=== PATIENT | male | born 1990 | race Caucasian/White ===

== ENCOUNTER 2018-05-07 03:59 | Emergency (ER) | payer SELFPAY ==
[2018-05-07 04:18] VITALS: TEMP 97.7
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
[2018-05-07 06:53] VITALS: BP 102/60; PULSE 87; RESP 20; O2SAT 100
--- NOTE | 2018-05-07 16:19 | RAD ---
PROCEDURE: Radiographs of the Chest and Right Ribs. HISTORY: pain COMPARISON: None available. TECHNIQUE: Frontal radiograph of the chest and multiple oblique radiographs of the right ribs were obtained. FINDINGS: RIGHT RIBS: No fracture or focal lesion visualized. LUNGS: Clear. PLEURA: No pneumothorax or pleural fluid. CARDIOVASCULAR: Normal sized heart. No pulmonary vascular congestion. OTHER FINDINGS: None. IMPRESSION: Unremarkable radiographs of the chest and right ribs. No right rib fracture.
== END 2018-05-07 06:53 | disposition home or self-care (01) ==
LOC: C.ER 03:59
DX: R10.11 Right upper quadrant pain (principal)

== ENCOUNTER 2018-06-17 15:54 | Emergency (ER) | payer MEDICAID ==
[2018-06-17 16:11] VITALS: TEMP 98.9; O2SAT 99
--- NOTE | 2018-06-17 16:18 | C.PDOC ---
History Of Present Illness 28-year-old male presents to the emergency department for psychiatric evaluation. Patient states he has been having increased fights and arguments with his family, and also has been pacing and having racing thoughts. His states that his family members "tell him that he is crazy", prompting ER visit today. Patient states "I want to know." He denies SI/HI. No other complaints at this time. Time Seen by Provider: 06/17/18 16:03 Chief Complaint (Nursing): Psychiatric Evaluation History Per: Patient History/Exam Limitations: no limitations Current Symptoms Are (Timing): Still Present Suicide/Self Injury Attempted (Context): None Associated Symptoms: Agitation Past Medical History Reviewed: Historical Data, Nursing Documentation, Vital Signs Vital Signs: Last Vital Signs Temp 98.9 F 06/17/18 16:07 Pulse 88 06/17/18 17:31 Resp 16 06/17/18 17:31 BP 132/78 06/17/18 17:31 Pulse Ox 99 06/17/18 17:31 - Medical History PMH: HTN Family History: States: No Known Family Hx - Social History Hx Tobacco Use: Yes (heavy smoker) Hx Alcohol Use: Yes Hx Substance Use: Yes - Immunization History Hx Tetanus Toxoid Vaccination: No Hx Influenza Vaccination: No Hx Pneumococcal Vaccination: No Review Of Systems Constitutional: Negative for: Fever Cardiovascular: Negative for: Chest Pain, Palpitations Respiratory: Negative for: Shortness of Breath Gastrointestinal: Negative for: Nausea, Vomiting Neurological: Negative for: Headache, Dizziness Psych: Negative for: Depression, Psychosis, Suicidal ideation Physical Exam - Physical Exam Appears: Well, Non-toxic, Other (appears anxious, pressured speech) Skin: Normal Color, Warm, Dry, No Rash Head: Atraumatic, Normacephalic Eye(s): bilateral: Normal Inspection Oral Mucosa: Moist Cardiovascular: Rhythm Regular Respiratory: Normal Breath Sounds, No Rales, No Rhonchi, No Wheezing Extremity: Normal ROM, No Deformity Neurological/Psych: Oriented x3, Normal Speech, Normal Cognition Gait: Steady ED Course And Treatment O2 Sat by Pulse Oximetry: 99 (ra) Pulse Ox Interpretation: Normal Progress Note: Patient evaluated by myself and crisis counselor Nan. He has no SI/HI and is stable for discharge. Patient referred to [facility] services, which he will walk to after being discharged from ED. He understands he should return to ED if he has worsening or concerning symptoms. Disposition Counseled Patient/Family Regarding: Diagnosis, Need For Followup - Disposition Disposition: HOME/ ROUTINE Disposition Time: 17:25 Condition: STABLE Additional Instructions: [facility] [address] [place] [id number] Forms: General Discharge Instructions, [facility] (Chinese) Print Language: BELARUSIAN - Clinical Impression Clinical Impression: Anxiety, Agitation - Scribe Statement The provider has reviewed the documentation as recorded by the Scribe (Berna Erazo) All medical record entries made by the Scribe were at my direction and personally dictated by me. I have reviewed the chart and agree that the record accurately reflects my personal performance of the history, physical exam, medical decision making, and the department course for this patient. I have also personally directed, reviewed, and agree with the discharge instructions and disposition.
[2018-06-17 16:55] LABS: URINE BILIRUBIN NEGATIVE (NEGATIVE); URINE BLOOD NEGATIVE (NEGATIVE); URINE CLARITY Clear (Clear); URINE COLOR Yellow (YELLOW); URINE GLUCOSE (UA) NORMAL (Normal); URINE LEUKOCYTE ESTERASE 1+ Leu/uL (Negative); URINE PROTEIN NEGATIVE (NEGATIVE); URINE UROBILINOGEN NORMAL mg/dL (0.2-1.0)
[2018-06-17 17:06] LABS: BARBITURATES, UR NEGATIVE (NEGATIVE); BENZODIAZEPINES, UR NEGATIVE (NEGATIVE); OPIATES, UR NEGATIVE (NEGATIVE); PHENCYCLIDINE, UR NEGATIVE (NEGATIVE)
[2018-06-17 17:34] VITALS: BP 132/78; PULSE 88; RESP 16
== END 2018-06-17 17:31 | disposition home or self-care (01) ==
LOC: C.ER 15:54
DX: F41.9 Anxiety disorder, unspecified (principal); R45.1 Restlessness and agitation

== ENCOUNTER 2018-06-17 17:52 | Inpatient (IN) | payer MEDICAID ==
[2018-06-17 19:31] LABS: BASO % 0.3 % (0.0-2.0); EOS # 0.2 K/uL (0.0-0.7); EOS % 2.9 % (0.0-4.0); LYMPH # 3.6 K/uL (1.0-4.3); LYMPH % 43.5 % (20.0-40.0); MEAN CELL VOLUME 87.6 fL (80.0-94.0); MEAN CORPUSCULAR HEMOGLOBIN 29.6 pg (27.0-31.0); MEAN CORPUSCULAR HGB CONC 33.8 g/dL (33.0-37.0); MEAN PLATELET VOLUME 7.7 fL (7.2-11.7); MONO # 0.6 K/uL (0.0-0.8); MONO % 7.9 % (0.0-10.0); NEUT # 3.7 K/uL (1.8-7.0); NEUT % 45.4 % (50.0-75.0); NRBC % 0.1 % (0.0-2.0); RBC 4.4 Mil/uL (4.40-5.90); RED CELL DISTRIBUTION WIDTH 13.9 % (11.5-14.5); WHITE BLOOD COUNT 8.2 K/uL (4.8-10.8)
[2018-06-17 19:52] LABS: ALB/GLOB RATIO 1.7 (1.0-2.1); ALBUMIN 4.6 g/dL (3.5-5.0); ALT/SGPT 26 U/L (21-72); AST/SGOT 26 U/L (17-59); BLOOD UREA NITROGEN 14 mg/dL (9-20); CALCIUM 9.2 mg/dl (8.6-10.4); GFR AFRICAN-AMERICAN > 60; GFR NON-AFRICAN AMERICAN > 60
[2018-06-17 19:54] LABS: URINE BILIRUBIN NEGATIVE (NEGATIVE); URINE BLOOD NEGATIVE (NEGATIVE); URINE CLARITY Clear (Clear); URINE COLOR Yellow (YELLOW); URINE GLUCOSE (UA) NORMAL (Normal); URINE LEUKOCYTE ESTERASE TRACE Leu/uL (Negative); URINE PROTEIN NEGATIVE (NEGATIVE); URINE UROBILINOGEN NORMAL mg/dL (0.2-1.0)
[2018-06-17 19:56] LABS: ACETAMINOPHEN < 10.0 ug/mL (10.0-30.0); SALICYLATE < 1.0 mg/dL 1
[2018-06-17 20:03] LABS: BARBITURATES, UR NEGATIVE (NEGATIVE); BENZODIAZEPINES, UR NEGATIVE (NEGATIVE); OPIATES, UR NEGATIVE (NEGATIVE); PHENCYCLIDINE, UR NEGATIVE (NEGATIVE)
--- NOTE | 2018-06-17 21:06 | C.PDOC ---
Time Seen by Provider: 06/17/18 18:32 Chief Complaint (Nursing): Psychiatric Evaluation History Per: Patient Onset/Duration Of Symptoms: Days Current Symptoms Are (Timing): Still Present Suicide/Self Injury Attempted (Context): None Modifying Factor(s): Alcohol Severity: Severe Associated Symptoms: Agitation, Paranoia Additional History Per: Prior Records Past Medical History Reviewed: Historical Data, Nursing Documentation, Vital Signs Vital Signs: Last Vital Signs Temp 98.3 F 06/17/18 17:58 Pulse 92 H 06/17/18 17:58 Resp 18 06/17/18 17:58 BP 124/82 06/17/18 17:58 Pulse Ox 100 06/17/18 21:08 - Medical History PMH: HTN Surgical History: No Surg Hx Family History: States: Unknown Family Hx - Social History Hx Tobacco Use: Yes (heavy smoker) Hx Alcohol Use: Yes Hx Substance Use: No - Immunization History Hx Tetanus Toxoid Vaccination: No Hx Influenza Vaccination: No Hx Pneumococcal Vaccination: No Review Of Systems Constitutional: Negative for: Fever Respiratory: Negative for: Shortness of Breath Gastrointestinal: Negative for: Vomiting, Abdominal Pain Musculoskeletal: Negative for: Neck Pain Skin: Positive for: Bruising Neurological: Positive for: Headache. Negative for: Weakness, Numbness, Seizures Psych: Positive for: Psychosis Physical Exam - Physical Exam Appears: Agitated Skin: Normal Color, Warm, Dry Head: Tenderness (with ecchymosis around right mastoid area) Eye(s): bilateral: PERRL, EOMI Ear(s): Bilateral: Normal Nose: No Epistaxis, No Deformity Teeth: No Avulsed Neck: Normal ROM, No Midline Cervical Tenderness, No Step Off Deformity, Supple Chest: Symmetrical, No Deformity Cardiovascular: Rhythm Regular Respiratory: Normal Breath Sounds, No Accessory Muscle Use Gastrointestinal/Abdominal: Soft, No Tenderness Back: No Vertebral Tenderness Extremity: Normal ROM, No Deformity Neurological/Psych: Oriented x3, Normal Motor, Normal Sensation ED Course And Treatment - Laboratory Results Result Diagrams: 06/17/18 19:26 06/17/18 19:26 Lab Interpretation: No Acute Changes ECG: Interpreted By Me, Viewed By Me ECG Rhythm: Sinus Rhythm, Nonspecific Changes ECG Interpretation: No Acute Changes Rate From EC O2 Sat by Pulse Oximetry: 100 Pulse Ox Interpretation: Normal - Radiology CXR: Interpreted by Me, Viewed By Me CXR Interpretation: Yes: No Acute Disease - CT Scan/US CT head Other Rad Studies (CT/US): Read By Radiologist, Radiology Report Reviewed CT/US Interpretation: Contusion in the soft tissues overlying the right mastoid air cells. No acute fracture or acute intracranial findings. Progress Note: Pt is medically stable for psychiatric admission. Disposition Discussed With : Lorena Marte Counseled Patient/Family Regarding: Studies Performed, Diagnosis, Smoking Cessation - Disposition Disposition: HOSPITALIZED Disposition Time: 21:27 Condition: STABLE - Clinical Impression Clinical Impression: Paranoid, Agitation Decision To Admit - Pt Status Changed To: Hospital Disposition Of: Inpatient - Admit Certification Admit to Inpatient:: After my assessment, the patient will require hospitalization for at least two midnights. This is because of the severity of symptoms shown, intensity of services needed, and/or the medical risk in this patient being treated as an outpatient. - InPatient: Physician Admission Certification: I certify that this patient requires 2 or more midnights of care for the following reason:: Psych. - . Bed Request Type: Psychiatry Admitting Physician: Willian Burnham Patient Diagnosis: Paranoid, Agitation
[2018-06-17] MEDS ORDERED: Divalproex 500 mg DR Tab PO STA ×2 (21:19→23:32)
[2018-06-17 22:26] VITALS: O2SAT 99
--- NOTE | 2018-06-17 23:06 | PCM.BM ---
<Sean Hardin - Last Filed: 06/17/18 23:05> Treatment Plan Problems - Problems identified on initial assessmt Paranoia Date Initiated: 06/17/18 Time Initiated: 22:35 Assessment reference: NA Status: Active Depression Date Initiated: 06/17/18 Time Initiated: 22:35 Assessment reference: NA Status: Active Treatment assets and liabiliti Patient Assests: negotiates basic needs Patient Liabilities: substance abuse (Poly substance abuse) - Milieu Protocol Maintain good personal hygiene: daily Encourage regular showers, daily Remind patient to perform daily oral care, every shift Assist patient to perform ADL's Conduct patient checks and document Observation sheet: Q15 minutes Maintain personal safety: every shift Educate patient to report safety concerns to staff, every shift Monitor environment for contraband/sharps Medication safety: Monitor for expected outcome, potential side effects: every shift, Assess barriers to learning: every shift, Assess readiness for medication education: every shift <Willian Burnham - Last Filed: 06/20/18 11:42> - Diagnosis (1) Bipolar disorder with psychotic features Status: Acute Interventions: 06/20/18 11:43 * Assess/adjust medications daily and /or as needed * See patient on an individual basis 7x/week to assess level of manic behaviors and stability * Discuss risks, benefits, side effects and alternatives of medications * <Liza Acosta - Last Filed: 06/20/18 13:44> Family Contact Family involvement: Family/SO is involved Family contact: Patient agrees to contact Family contact name: Mother Family contacted how many times per week?: 1 - Goals for Treatment Patient goals for treatment: "I want to go home." Discharge/Continuing Care - Education Needs Education Needs: Patient Medication, Patient Coping Skills - Discharge Discharge Criteria: Tolerates medication w/o severe side effects, Reduction of target symptoms Discharge to:: Home, With Family - Treatment Team Participation Discussed with Family/SO: No Was Patient/Family/SO present at Treatment Team Meeting: Yes
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
--- NOTE | 2018-06-18 11:26 | RAD ---
Date of service: 06/17/2018 HISTORY: Detox/Psy COMPARISON: Comparison is made with 05/07/2018 TECHNIQUE: Chest PA and lateral FINDINGS: LUNGS: No active pulmonary disease. PLEURA: No significant pleural effusion identified. No pneumothorax apparent. CARDIOVASCULAR: Normal. OSSEOUS STRUCTURES: No significant abnormalities. VISUALIZED UPPER ABDOMEN: Normal. OTHER FINDINGS: None. IMPRESSION: No active disease.
[2018-06-18] MEDS: Multiple Vitamins Tab PO SCH (11:50)
[2018-06-18] MEDS: Divalproex 125 mg DR Tab PO SCH ×2 (11:52→18:38)
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
[2018-06-18] MEDS: Divalproex 250 mg DR Tab PO SCH (18:40)
[2018-06-19] MEDS: Divalproex 250 mg DR Tab PO SCH ×2 (09:08→17:45)
[2018-06-19] MEDS: Multiple Vitamins Tab PO SCH (09:08)
--- NOTE | 2018-06-19 14:20 | PCM.PYCHPN ---
Psychiatric Progress Note - Psychiatric Progress Note Patient seen today, length of contact: 15 minutes Patient Chief Complaint: "I'm feeling calm." Problems Identified/Issues Discussed: Pt was seen and evaluated. Chart reviewed. Nurse input received that pt is compliant with his medication and denied s/e. Pt stated that he is feeling calm , had good sleep last night. Pt. stated improvement in his anger issues, appetite. He is attending groups and feels it is beneficial. He needs more time to stabilize on meds. Medication Change: No Medical Record Reviewed: Yes Mental Status Examination - Cognitive Function Orientation: Person, Place, Situation, Time Memory: Intact Attention: WNL Concentration: WNL Association: WN Fund of Knowledge: [facility] Decription of patient's judgement and insights: improving/improving - Mood Mood: Depressed, Anxious - Affect Affect: Constricted, Other (labile) - Speech Speech: Appropriate - Formal Thought Process Formal Thought Process: Delusions, Paranoia - Suicidal Ideation Suicidal Ideation: No Plan: denied - Homicidal Ideation Homicidal Ideation: No Plan: denied Goal/Treatment Plan - Goal/Treatment Plan Need for Continued Stay: Severe depression anxiety, Discharge may exacerbated symptoms Progress Toward Problem(s) and Goals/Treatment Plan: Continue Risperdal for psychosis Depakote for impulsive behavior Nicotine for tobacco craving Multivitamin and prn meds Pyscho-education Therapy in milieu OT/PT Continue attending group Estimated Date of D/C: 06/21/18 - Smoking Cessation Smoking Cessation Initiated: Yes
[2018-06-20] MEDS: Divalproex 250 mg DR Tab PO SCH (09:08)
[2018-06-20] MEDS: Multiple Vitamins Tab PO SCH (09:08)
[2018-06-20] MEDS ORDERED: Pneumococcal 23-Valent Vaccine IM ONE (10:00)
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
[2018-06-20] MEDS: Divalproex 500 mg DR Tab PO SCH (18:16)
[2018-06-21] MEDS: Divalproex 500 mg DR Tab PO SCH ×2 (09:22→17:09)
[2018-06-21] MEDS: Multiple Vitamins Tab PO SCH (09:22)
--- NOTE | 2018-06-21 14:44 | CARD ---
APPROVED REPORT Date of service: 06/17/2018 EKG Measurement Heart [id number] <Conclusion> Normal sinus rhythm with sinus arrhythmia Minimal voltage criteria for LVH, may be normal variant Borderline ECG
[2018-06-22 06:30] VITALS: RESP 18; TEMP 98
[2018-06-22 09:27] VITALS: BP 107/73; PULSE 65
[2018-06-22] MEDS: Multiple Vitamins Tab PO SCH (09:50)
[2018-06-22] MEDS: Divalproex 500 mg DR Tab PO SCH (09:50)
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
== END 2018-06-22 11:10 | disposition home or self-care (01) | DRG 885 ==
LOC: C.ER 17:52 → C.9E 21:30 → C.5E 21:50
PROVIDERS: ADMIT Psychiatry & Neurology Psychiatry; ATTEND Psychiatry & Neurology Psychiatry
PROC: GZHZZZZ Group Psychotherapy (ICD-10-PCS; principal; 2018-06-17)
PROC: HZ56ZZZ Individual Psychotherapy for Substance Abuse Treatment, Psychoeducation (ICD-10-PCS; 2018-06-17)
PROC: GZ56ZZZ Individual Psychotherapy, Supportive (ICD-10-PCS; 2018-06-17)
PROC: HZ2ZZZZ Detoxification Services for Substance Abuse Treatment (ICD-10-PCS; 2018-06-17)
PROC: HZ59ZZZ Individual Psychotherapy for Substance Abuse Treatment, Supportive (ICD-10-PCS; 2018-06-17)
PROC: HZ46ZZZ Group Counseling for Substance Abuse Treatment, Psychoeducation (ICD-10-PCS; 2018-06-17)
DX: F31.64 Bipolar disorder, current episode mixed, severe, with psychotic features (principal); F10.230 Alcohol dependence with withdrawal, uncomplicated; F23 Brief psychotic disorder; Y90.0 Blood alcohol level of less than 20 mg/100 ml; F17.210 Nicotine dependence, cigarettes, uncomplicated; F60.2 Antisocial personality disorder; F63.81 Intermittent explosive disorder; I10 Essential (primary) hypertension; F41.8 Other specified anxiety disorders

== ENCOUNTER 2018-06-26 19:06 | Emergency (ER) | payer MEDICAID ==
--- NOTE | 2018-06-26 21:10 | C.PDOC ---
History Of Present Illness 28 year old male with PMHx of bipolar disorder mixed with severe psychotic features is brought to the ED for evaluation. Patient was recently admitted to the Hospital on 06/17 where he was diagnosed with bipolar disorder mixed with severe psychotic features. Patient was discharged on 06/22 on depakote, clonapine , cogentin. During the patient's admission on 06/17 he had the same presentation as today agitated and argumentative . Patient states people at his house are threatening him and telling him he is going to . Patient had also previous episodes of paranoia and delusional thinking as well. Time Seen by Provider: 06/26/18 19:36 Chief Complaint (Nursing): Psychiatric Evaluation History Per: Patient History/Exam Limitations: language barrier Onset/Duration Of Symptoms: Days Current Symptoms Are (Timing): Still Present Suicide/Self Injury Attempted (Context): None Associated Symptoms: Anger, Agitation, Paranoia. denies: Depression, Suicidal Thoughts, Suicidal Plan Involuntary Hold By: None Recent travel outside of the [place]: No Additional History Per: Patient, Prior Records Past Medical History Reviewed: Historical Data, Nursing Documentation, Vital Signs Vital Signs: Last Vital Signs Temp 99.0 F 06/26/18 19:20 Pulse 99 H 06/26/18 19:20 Resp 18 06/26/18 19:20 BP 124/71 06/26/18 19:20 Pulse Ox 96 06/26/18 21:19 - Medical History PMH: Anxiety, Bipolar Disorder, Depression Denies: Arthritis, Diabetes, Hepatitis, HIV, HTN, Pneumonia, Chronic Kidney Disease, Rheumatoid Arthritis, Seizures, Sexually Transmitted Disease Surgical History: No Surg Hx - [facility] Procedures DETOXIFICATION SERVICES FOR SUBSTANCE ABUSE TREATMENT (06/17/18) GROUP HOME CARE MANAGER FOR SUBSTANCE ABUSE TREATMENT, PSYCHOEDUCATION (06/17/18) GROUP PSYCHOTHERAPY (06/17/18) INDIV PSYCHOTHERAPY FOR SUBSTANCE ABUSE TREATMENT, SUPPORT (06/17/18) INDIV PSYCHOTHERAPY FOR SUBSTANCE ABUSE, PSYCHOEDUCATION (06/17/18) INDIVIDUAL PSYCHOTHERAPY, SUPPORTIVE (06/17/18) Family History: States: Unknown Family Hx - Social History Hx Tobacco Use: Yes (heavy smoker) Hx Alcohol Use: Yes (drinking alcohol daily) Hx Substance Use: Yes - Immunization History Hx Tetanus Toxoid Vaccination: No Hx Influenza Vaccination: No Hx Pneumococcal Vaccination: No Review Of Systems Constitutional: Negative for: Fever, Chills Cardiovascular: Negative for: Chest Pain Respiratory: Negative for: Cough, Shortness of Breath Gastrointestinal: Negative for: Nausea, Vomiting, Abdominal Pain Skin: Negative for: Rash Psych: Positive for: Anxiety, Psychosis. Negative for: Depression, Suicidal ideation Physical Exam - Physical Exam Appears: Non-toxic, Combative, Agitated Skin: Normal Color, Warm, Dry Head: Atraumatic, Normacephalic Eye(s): bilateral: Normal Inspection Neck: Normal ROM, Supple Chest: Symmetrical Cardiovascular: Rhythm Regular Respiratory: Normal Breath Sounds, No Rales, No Rhonchi, No Wheezing Gastrointestinal/Abdominal: Soft, No Tenderness, No Guarding, No Rebound Extremity: Normal ROM, No Tenderness, No Swelling Neurological/Psych: Oriented x3, Normal Speech, Normal Cognition Gait: Steady ED Course And Treatment O2 Sat by Pulse Oximetry: 96 (ON RA) Pulse Ox Interpretation: Normal Progress Note: Patient was evaluated by crisis and cleared for discharge. He can follow up with psychiatry as an out patient Medical Decision Making Medical Decision Making: Impression: psychiatric evaluation Plan: * 1:1 Obs * Crisis evaluation Prior records: * Pt admitted on 06/17 add D/C 06/22 * Patient was discharged on depakote, clonapine, and congentin * Similar agitated and argumentative presentation on 06/17 and today Disposition - Disposition Disposition: HOME/ ROUTINE Disposition Time: 22:15 Condition: STABLE Instructions: Bipolar Disorder Forms: [facility] (Lao) Print Language: ARMENIAN - Clinical Impression Clinical Impression: Bipolar disorder with psychotic features - Scribe Statement The provider has reviewed the documentation as recorded by the Scribvalentine Crowley All medical record entries made by the Scribvalentine were at my direction and personally dictated by me. I have reviewed the chart and agree that the record accurately reflects my personal performance of the history, physical exam, medical decision making, and the department course for this patient. I have also personally directed, reviewed, and agree with the discharge instructions and disposition.
[2018-06-26 22:24] VITALS: BP 112/74; PULSE 87; RESP 14; TEMP 98.1; O2SAT 97
== END 2018-06-26 22:23 | disposition home or self-care (01) ==
LOC: C.ER 19:06
DX: F31.5 Bipolar disorder, current episode depressed, severe, with psychotic features (principal)

== ENCOUNTER 2018-06-28 22:05 | Emergency (ER) | payer MEDICAID ==
[2018-06-28 22:14] VITALS: O2SAT 98
--- NOTE | 2018-06-28 22:55 | C.PDOC ---
History Of Present Illness Patient presents to the ER states he wants to be checked. Patient has been seen numerous times in the past with similar presentations. Denies suicidal ideation or homicidal ideation. Time Seen by Provider: 06/28/18 22:55 Chief Complaint (Nursing): Psychiatric Evaluation History Per: Patient History/Exam Limitations: no limitations Onset/Duration Of Symptoms: Hrs Current Symptoms Are (Timing): Still Present Suicide/Self Injury Attempted (Context): None Severity: None Pain Scale Rating Of: 0 Associated Symptoms: denies: Suicidal Thoughts, Other (Homicidal ideation) Involuntary Hold By: None Recent travel outside of the [place]: No Past Medical History Reviewed: Historical Data, Nursing Documentation, Vital Signs Vital Signs: Last Vital Signs Temp 98.2 F 06/28/18 22:12 Pulse 74 06/28/18 22:12 Resp 18 06/28/18 22:12 BP 104/70 06/28/18 22:12 Pulse Ox 98 06/28/18 23:04 - Medical History PMH: Anxiety, Bipolar Disorder, Depression Denies: Arthritis, Diabetes (Patient denied), Hepatitis (Patient denied), HIV (Patient denied), HTN (Patient denied), Pneumonia, Chronic Kidney Disease, Rheumatoid Arthritis, Seizures (Patient denied), Sexually Transmitted Disease ( Patient denied) - [facility] Procedures DETOXIFICATION SERVICES FOR SUBSTANCE ABUSE TREATMENT (06/17/18) GROUP ANIMAL SHELTER MANAGER FOR SUBSTANCE ABUSE TREATMENT, PSYCHOEDUCATION (06/17/18) GROUP PSYCHOTHERAPY (06/17/18) INDIV PSYCHOTHERAPY FOR SUBSTANCE ABUSE TREATMENT, SUPPORT (06/17/18) INDIV PSYCHOTHERAPY FOR SUBSTANCE ABUSE, PSYCHOEDUCATION (06/17/18) INDIVIDUAL PSYCHOTHERAPY, SUPPORTIVE (06/17/18) Family History: States: No Known Family Hx - Social History Hx Tobacco Use: Yes (heavy smoker) Hx Alcohol Use: Yes (drinking alcohol daily) Hx Substance Use: Yes (COCAINE,, SNORTS) - Immunization History Hx Tetanus Toxoid Vaccination: No Hx Influenza Vaccination: No Hx Pneumococcal Vaccination: No Review Of Systems Constitutional: Negative for: Fever, Chills Cardiovascular: Negative for: Chest Pain, Palpitations Respiratory: Negative for: Cough, Shortness of Breath Gastrointestinal: Negative for: Nausea, Vomiting Psych: Negative for: Suicidal ideation, Other (Homicidal ideation) Physical Exam - Physical Exam Appears: Non-toxic Skin: Warm, Dry Head: Normacephalic Oral Mucosa: Moist Chest: Symmetrical, No Tenderness Cardiovascular: Rhythm Regular Respiratory: No Rales, No Rhonchi, No Wheezing Gastrointestinal/Abdominal: Soft, No Tenderness Neurological/Psych: Oriented x3 ED Course And Treatment - Laboratory Results Result Diagrams: 06/28/18 23:08 06/28/18 23:08 O2 Sat by Pulse Oximetry: 98 (Room air) Pulse Ox Interpretation: Normal Progress Note: Blood work and urinalysis ordered. Patient seen and cleared by crisis. Reevaluation Time: 23:27 Reassessment Condition: Improved Disposition Counseled Patient/Family Regarding: Studies Performed, Diagnosis, Need For Followup - Disposition Referrals: [facility] [Outside] Disposition: HOME/ ROUTINE Disposition Time: 22:55 Condition: FAIR Forms: [facility] (Thai), General Discharge Instructions - Clinical Impression Clinical Impression: Anxiety, Encounter for medical assessment - Scribe Statement The provider has reviewed the documentation as recorded by the Scribe Arturo Colunga All medical record entries made by the Scribe were at my direction and personally dictated by me. I have reviewed the chart and agree that the record accurately reflects my personal performance of the history, physical exam, medical decision making, and the department course for this patient. I have also personally directed, reviewed, and agree with the discharge instructions and disposition.
[2018-06-28 23:11] LABS: BASO % 0.4 % (0.0-2.0); EOS # 0.1 K/uL (0.0-0.7); EOS % 1.8 % (0.0-4.0); HEMOGLOBIN 12.8 g/dL (12.0-18.0); LYMPH # 1.9 K/uL (1.0-4.3); LYMPH % 29.2 % (20.0-40.0); MEAN CELL VOLUME 87.4 fL (80.0-94.0); MEAN CORPUSCULAR HEMOGLOBIN 29.8 pg (27.0-31.0); MEAN PLATELET VOLUME 7.7 fL (7.2-11.7); MONO # 0.8 K/uL (0.0-0.8); MONO % 11.9 % (0.0-10.0); NEUT # 3.6 K/uL (1.8-7.0); NEUT % 56.7 % (50.0-75.0); RBC 4.29 Mil/uL (4.40-5.90); WHITE BLOOD COUNT 6.4 K/uL (4.8-10.8)
[2018-06-28 23:14] LABS: URINE BILIRUBIN NEGATIVE (NEGATIVE); URINE BLOOD NEGATIVE (NEGATIVE); URINE CLARITY Clear (Clear); URINE COLOR Straw (YELLOW); URINE GLUCOSE (UA) NORMAL (Normal); URINE LEUKOCYTE ESTERASE NEG Leu/uL (Negative); URINE PROTEIN NEGATIVE (NEGATIVE); URINE UROBILINOGEN NORMAL mg/dL (0.2-1.0)
[2018-06-28 23:18] LABS: URINE BACTERIA RARE (<OCC)
[2018-06-28 23:24] LABS: ALB/GLOB RATIO 1.6 (1.0-2.1); ALBUMIN 4.6 g/dL (3.5-5.0); ALT/SGPT 27 U/L (21-72); AST/SGOT 28 U/L (17-59); BLOOD UREA NITROGEN 16 mg/dL (9-20); CALCIUM 8.5 mg/dl (8.6-10.4); GFR NON-AFRICAN AMERICAN > 60
[2018-06-28 23:28] VITALS: BP 111/70; PULSE 82; RESP 20; TEMP 98.6
[2018-06-28 23:29] LABS: BARBITURATES, UR NEGATIVE (NEGATIVE); BENZODIAZEPINES, UR NEGATIVE (NEGATIVE); OPIATES, UR NEGATIVE (NEGATIVE); PHENCYCLIDINE, UR NEGATIVE (NEGATIVE)
== END 2018-06-28 23:28 | disposition home or self-care (01) ==
LOC: C.ER 22:05 → SUPCPDRO 22:05 → C.ER 23:28
DX: F41.9 Anxiety disorder, unspecified (principal); F31.9 Bipolar disorder, unspecified

== ENCOUNTER 2018-07-03 21:42 | Inpatient (IN) | payer MEDICAID ==
[2018-07-03 21:42] VITALS: BMI 25.8
--- NOTE | 2018-07-03 23:14 | C.PDOC ---
History Of Present Illness 28 year old male presents to the ED requesting to be evaluated by a psychiatrist. Patient states he has been hearing voices, seeing people and thinks he has a snake inside his body. Patient has multiple prior visits to the ED for similar presentation. Patient is also c/o right sided abdominal pain that feel like cramps. Patient admits to drinking alcohol and smoking cigarettes. Patient denies CP, SOB, fever, chills, nausea, vomit, injury, fall, trauma. Time Seen by Provider: 07/03/18 22:15 Chief Complaint (Nursing): Psychiatric Evaluation History Per: Patient History/Exam Limitations: clinical condition Onset/Duration Of Symptoms: Days Current Symptoms Are (Timing): Still Present Suicide/Self Injury Attempted (Context): None Modifying Factor(s): Alcohol Associated Symptoms: Anger, Agitation, Paranoia. denies: Depression, Suicidal Thoughts, Suicidal Plan Recent travel outside of the [place]: No Additional History Per: Patient Past Medical History Reviewed: Historical Data, Nursing Documentation, Vital Signs Vital Signs: Last Vital Signs Temp 98.1 F 07/03/18 22:07 Pulse 76 07/04/18 01:18 Resp 16 07/04/18 01:18 BP 107/76 07/04/18 01:18 Pulse Ox 98 07/04/18 01:18 - Medical History PMH: Anxiety, Bipolar Disorder, Depression Denies: Arthritis, Diabetes (Patient denied), Hepatitis (Patient denied), HIV (Patient denied), HTN (Patient denied), Pneumonia, Chronic Kidney Disease, Rheumatoid Arthritis, Seizures (Patient denied), Sexually Transmitted Disease ( Patient denied) Surgical History: No Surg Hx - [facility] Procedures DETOXIFICATION SERVICES FOR SUBSTANCE ABUSE TREATMENT (06/17/18) GROUP CONCRETE GUN OPERATOR FOR SUBSTANCE ABUSE TREATMENT, PSYCHOEDUCATION (06/17/18) GROUP PSYCHOTHERAPY (06/17/18) INDIV PSYCHOTHERAPY FOR SUBSTANCE ABUSE TREATMENT, SUPPORT (06/17/18) INDIV PSYCHOTHERAPY FOR SUBSTANCE ABUSE, PSYCHOEDUCATION (06/17/18) INDIVIDUAL PSYCHOTHERAPY, SUPPORTIVE (06/17/18) Family History: States: Unknown Family Hx - Social History Hx Tobacco Use: Yes (heavy smoker) Hx Alcohol Use: Yes (drinking alcohol daily) Hx Substance Use: Yes (COCAINE,, SNORTS) - Immunization History Hx Tetanus Toxoid Vaccination: No Hx Influenza Vaccination: No Hx Pneumococcal Vaccination: No Review Of Systems Constitutional: Negative for: Fever, Chills Cardiovascular: Negative for: Chest Pain, Palpitations Respiratory: Negative for: Cough, Shortness of Breath Gastrointestinal: Positive for: Abdominal Pain. Negative for: Nausea, Vomiting Neurological: Negative for: Weakness, Numbness, Headache, Dizziness Psych: Positive for: Psychosis. Negative for: Depression, Suicidal ideation Physical Exam - Physical Exam Appears: Non-toxic, Agitated Skin: Normal Color, Warm, Dry Head: Atraumatic, Normacephalic Eye(s): bilateral: Normal Inspection Oral Mucosa: Moist Neck: Normal ROM, Supple Chest: Symmetrical Cardiovascular: Rhythm Regular Respiratory: Normal Breath Sounds, No Rales, No Rhonchi, No Wheezing Gastrointestinal/Abdominal: Soft, No Tenderness, No Guarding, No Rebound Extremity: Normal ROM, No Tenderness, No Swelling Neurological/Psych: Oriented x3, Normal Speech, Normal Cognition Gait: Steady ED Course And Treatment - Laboratory Results Result Diagrams: 07/03/18 23:36 07/03/18 23:36 O2 Sat by Pulse Oximetry: 98 (ON RA) Pulse Ox Interpretation: Normal Medical Decision Making Medical Decision Making: Plan: * Labs * UA * Crisis evaluation [id number] pt is medically cleared, abdomen soft, nd, nt on exam. pt accepted by Dr Allison to his service for admission Disposition Discussed With Dr.: Nate Allison Doctor Will See Patient In The: Hospital - Disposition Disposition: HOSPITALIZED Disposition Time: 00:41 Condition: STABLE - Clinical Impression Clinical Impression: Major depression - PA / ENGINE COWLING INSTALLER / Resident Statement MD/DO has reviewed & agrees with the documentation as recorded. - Scribe Statement The provider has reviewed the documentation as recorded by the Scribe Liban Crowley All medical record entries made by the Radhaibvalentine were at my direction and personally dictated by me. I have reviewed the chart and agree that the record accurately reflects my personal performance of the history, physical exam, medical decision making, and the department course for this patient. I have also personally directed, reviewed, and agree with the discharge instructions and disposition.
[2018-07-03 23:40] LABS: BASO # 0.1 K/uL (0.0-0.2); BASO % 1.1 % (0.0-2.0); EOS # 0.2 K/uL (0.0-0.7); EOS % 2.8 % (0.0-4.0); HEMOGLOBIN 13.3 g/dL (12.0-18.0); LYMPH # 3.3 K/uL (1.0-4.3); LYMPH % 39.5 % (20.0-40.0); MEAN CORPUSCULAR HEMOGLOBIN 29.6 pg (27.0-31.0); MEAN PLATELET VOLUME 8.1 fL (7.2-11.7); MONO # 0.6 K/uL (0.0-0.8); MONO % 7.4 % (0.0-10.0); NEUT # 4.1 K/uL (1.8-7.0); NEUT % 49.2 % (50.0-75.0); RBC 4.49 Mil/uL (4.40-5.90); RED CELL DISTRIBUTION WIDTH 13.6 % (11.5-14.5); WHITE BLOOD COUNT 8.3 K/uL (4.8-10.8)
[2018-07-03 23:44] LABS: SQUAMOUS EPITHIAL < 1 /hpf (0-5); URINE BILIRUBIN NEGATIVE (NEGATIVE); URINE BLOOD NEGATIVE (NEGATIVE); URINE CLARITY Clear (Clear); URINE COLOR Yellow (YELLOW); URINE GLUCOSE (UA) NORMAL (Normal); URINE LEUKOCYTE ESTERASE NEG Leu/uL (Negative); URINE PROTEIN NEGATIVE (NEGATIVE); URINE UROBILINOGEN NORMAL mg/dL (0.2-1.0)
[2018-07-03 23:57] LABS: ALB/GLOB RATIO 1.8 (1.0-2.1); ALBUMIN 4.6 g/dL (3.5-5.0); ALT/SGPT 27 U/L (21-72); AST/SGOT 22 U/L (17-59); BLOOD UREA NITROGEN 11 mg/dL (9-20); GFR AFRICAN-AMERICAN > 60; GFR NON-AFRICAN AMERICAN > 60
[2018-07-03 23:57] LABS: BARBITURATES, UR NEGATIVE (NEGATIVE); BENZODIAZEPINES, UR NEGATIVE (NEGATIVE); OPIATES, UR NEGATIVE (NEGATIVE); PHENCYCLIDINE, UR NEGATIVE (NEGATIVE)
[2018-07-04] MEDS ORDERED: traZODone 25 mg Tab PO PRN (01:23)
--- NOTE | 2018-07-04 01:35 | PCM.BM ---
Treatment Plan Problems - Problems identified on initial assessmt Altered thought process Date Initiated: 07/04/18 Time Initiated: 01:15 Assessment reference: NA Status: Active Treatment assets and liabiliti Patient Assests: cooperative, ADL independent, negotiates basic needs Patient Liabilities: auditory impairment - Milieu Protocol Maintain good personal hygiene: daily Encourage regular showers, daily Remind patient to perform daily oral care, daily Assist patient to perform ADL's Maintain personal safety: every shift Educate patient to report safety concerns to staff, every shift Monitor environment for contraband/sharps Medication safety: Monitor for expected outcome, potential side effects: every shift, Assess barriers to learning: every shift, Assess readiness for medication education: every shift
--- NOTE | 2018-07-04 01:39 | PCM.BM ---
<Fazal Cedillo - Last Filed: 07/04/18 01:37> Treatment Plan Problems - Problems identified on initial assessmt Altered thought process Date Initiated: 07/04/18 Time Initiated: 01:15 Assessment reference: NA Status: Active Treatment assets and liabiliti Patient Assests: cooperative, ADL independent, negotiates basic needs Patient Liabilities: auditory impairment - Milieu Protocol Maintain good personal hygiene: daily Encourage regular showers, daily Remind patient to perform daily oral care, daily Assist patient to perform ADL's Maintain personal safety: every shift Educate patient to report safety concerns to staff, every shift Monitor environment for contraband/sharps Medication safety: Monitor for expected outcome, potential side effects: every shift, Assess barriers to learning: every shift, Assess readiness for medication education: every shift <Liza Acosta - Last Filed: 07/05/18 11:21> Family Contact Family involvement: Family/SO is involved Family contact: Patient declines to allow family contact at present - Goals for Treatment Patient goals for treatment: "I need an X-ray for the snakes in my stomache." Discharge/Continuing Care - Education Needs Education Needs: Patient Medication, Patient Coping Skills - Discharge Discharge Criteria: Tolerates medication w/o severe side effects, Free of agitation, Reduction of target symptoms Discharge to:: Other - Additional Comments 07/05/18 11:20 [place] [facility] [place] - Treatment Team Participation Discussed with Family/SO: No Was Patient/Family/SO present at Treatment Team Meeting: No <Willian Burnham - Last Filed: 07/06/18 11:18> - Diagnosis (1) Schizoaffective disorder Status: Acute Interventions: 07/06/18 11:17 * Assess/adjust medications daily and /or as needed * See patient on an individual basis 7x/week to assess status of hallucinations * Discuss risks, benefits, side effects and alternatives of medications * (2) Drug abuse Status: Acute Interventions: 07/06/18 11:18 * Assess 7x/week regarding severity of withdrawal * Educate regarding risks, benefits, side effects and alternatives of medications * Use Motivational Interviewing for abstinence * Use CBT for relapse prevention * Medication management for withdrawal symptoms * Encourage medication assisted treatment *
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
[2018-07-04] MEDS: Divalproex 500 mg DR Tab PO SCH ×2 (10:34→18:07)
[2018-07-05 06:57] VITALS: RESP 18
[2018-07-05] MEDS: Divalproex 500 mg DR Tab PO SCH ×2 (09:11→18:27)
--- NOTE | 2018-07-05 13:24 | PCM.PYCHPN ---
Psychiatric Progress Note - Psychiatric Progress Note Patient seen today, length of contact: 15 min Patient Chief Complaint: I'm still feeling there is a snake in my belly.' Problems Identified/Issues Discussed: Patient was seen and evaluated, chart reviewed and discussed with the nurse. Today patient became increasingly irritable and agitated in the morning. Since he is a Armenian-speaking, he was seen with the director of creative services. He mentioned that since yesterday he is feeling the snake is crawling all over in his stomach. He remained disorganized and extremely internally preoccupied. He remained preoccupied with the snake and hallucinations that he became increasingly agitated and started threatening to be discharged. Security was called and patient was injected Geodon 20 mg IM. He remained paranoid, delusional and bizarre. However he is taking medications and denies any side effects. Medication Change: Yes (increase Haldol, increase Depakote) Medical Record Reviewed: Yes Mental Status Examination - Cognitive Function Orientation: Person, Place, Situation, Time Memory: Intact Attention: Poor Concentration: Poor Association: Loose Fund of Knowledge: Poor - Mood Mood: Anxious - Affect Affect: Broad - Speech Speech: Loud, Pressured - Formal Thought Process Formal Thought Process: Hallucinations, Delusions, Paranoia, Loosening of associations, Flight of ideas, Circumstantial - Suicidal Ideation Suicidal Ideation: No - Homicidal Ideation Homicidal Ideation: No Goal/Treatment Plan - Goal/Treatment Plan Need for Continued Stay: Severe depression anxiety, Severe functional impairment Progress Toward Problem(s) and Goals/Treatment Plan: Schizoaffective disorder bipolar type Alcohol use disorder severe CBT Psychoeducation Supportive therapy, group therapy, milieu therapy Haldol 10 mg by mouth TID Depakote 500 mg by mouth twice a day Cogentin 1 mg by mouth twice a day Trazodone 50 mg by mouth daily at bedtime Klonopin 1 mg by mouth 3 times a day Neurontin 300 mg by mouth 3 times a day Hydroxyzine 25 mg by mouth every 6 hours when necessary - Smoking Cessation Smoking Cessation Initiated: No
[2018-07-05 16:19] VITALS: O2SAT 99
[2018-07-06] MEDS ORDERED: Pneumococcal 23-Valent Vaccine IM ONE (10:00)
[2018-07-06] MEDS: Divalproex 500 mg DR Tab PO SCH ×3 (10:23→17:46)
--- NOTE | 2018-07-06 11:14 | PCM.PYCHPN ---
Psychiatric Progress Note - Psychiatric Progress Note Patient seen today, length of contact: 15 min Patient Chief Complaint: I'm feeling little better.' Problems Identified/Issues Discussed: Patient was seen and evaluated, chart reviewed and discussed with the nurse. Pt was seen by [facility] screeners and was refused as pt agreed to take meds and remained calm and cooperative. Patient appears less irritable and agitated in the morning. Since he is a Malay-speaking, he was seen with the assembly lead person. He appears less delusional about the snake crawling all over in his stomach. He appears more organized and less internally preoccupied than yesterday. He reports some improvement in the voices. He remained less paranoid, and less delusional. However he is taking medications and denies any side effects. Medication Change: Yes (increase Haldol, increase Depakote) Medical Record Reviewed: Yes Mental Status Examination - Cognitive Function Orientation: Person, Place, Situation, Time Memory: Intact Attention: WNL Concentration: Poor Association: Loose Fund of Knowledge: Poor - Mood Mood: Anxious - Affect Affect: Broad - Speech Speech: Loud, Pressured - Formal Thought Process Formal Thought Process: Delusions, Paranoia, Loosening of associations - Suicidal Ideation Suicidal Ideation: No - Homicidal Ideation Homicidal Ideation: No Goal/Treatment Plan - Goal/Treatment Plan Need for Continued Stay: Severe depression anxiety, Severe functional impairment Progress Toward Problem(s) and Goals/Treatment Plan: Schizoaffective disorder bipolar type Alcohol use disorder severe CBT Psychoeducation Supportive therapy, group therapy, milieu therapy Haldol 10 mg by mouth TID Depakote 500 mg by mouth twice a day Cogentin 1 mg by mouth twice a day Trazodone 50 mg by mouth daily at bedtime Klonopin 1 mg by mouth 3 times a day Neurontin 300 mg by mouth 3 times a day Hydroxyzine 25 mg by mouth every 6 hours when necessary Haldol Decanoate 100 mg IM - Smoking Cessation Smoking Cessation Initiated: No
[2018-07-06] MEDS: Haloperidol Decanoate 100 mg/ml Inj IM ONE ×2 (12:42→21:43)
[2018-07-07 06:35] VITALS: BP 90/57; PULSE 63; TEMP 970.8
[2018-07-07] MEDS: Divalproex 500 mg DR Tab PO SCH (10:17)
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
== END 2018-07-07 12:15 | disposition home or self-care (01) | DRG 885 ==
LOC: C.ER 21:42 → C.5E 07-04 00:40
PROC: HZ52ZZZ Individual Psychotherapy for Substance Abuse Treatment, Cognitive-Behavioral (ICD-10-PCS; principal; 2018-07-04)
PROC: HZ59ZZZ Individual Psychotherapy for Substance Abuse Treatment, Supportive (ICD-10-PCS; 2018-07-04)
PROC: HZ56ZZZ Individual Psychotherapy for Substance Abuse Treatment, Psychoeducation (ICD-10-PCS; 2018-07-04)
PROC: GZHZZZZ Group Psychotherapy (ICD-10-PCS; 2018-07-04)
PROC: GZ58ZZZ Individual Psychotherapy, Cognitive-Behavioral (ICD-10-PCS; 2018-07-04)
PROC: GZ56ZZZ Individual Psychotherapy, Supportive (ICD-10-PCS; 2018-07-04)
DX: F25.0 Schizoaffective disorder, bipolar type (principal); F10.20 Alcohol dependence, uncomplicated; Y90.0 Blood alcohol level of less than 20 mg/100 ml

== ENCOUNTER 2018-07-18 18:44 | Emergency (ER) | payer MEDICAID, OTHER ==
[2018-07-18 18:45] VITALS: BMI 25.8
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
[2018-07-18 20:43] LABS: SQUAMOUS EPITHIAL < 1 /hpf (0-5); URINE BACTERIA OCC (<OCC); URINE BILIRUBIN NEGATIVE (NEGATIVE); URINE BLOOD NEGATIVE (NEGATIVE); URINE CLARITY Clear (Clear); URINE COLOR Yellow (YELLOW); URINE GLUCOSE (UA) NORMAL (Normal); URINE LEUKOCYTE ESTERASE NEG Leu/uL (Negative); URINE PROTEIN NEGATIVE (NEGATIVE)
[2018-07-18 20:45] LABS: BASO % 0.3 % (0.0-2.0); EOS % 0.6 % (0.0-4.0); HEMOGLOBIN 14.5 g/dL (12.0-18.0); LYMPH # 1.9 K/uL (1.0-4.3); LYMPH % 26.6 % (20.0-40.0); MEAN CELL VOLUME 84.7 fL (80.0-94.0); MEAN CORPUSCULAR HEMOGLOBIN 29.6 pg (27.0-31.0); MEAN CORPUSCULAR HGB CONC 34.9 g/dL (33.0-37.0); MONO # 0.8 K/uL (0.0-0.8); NEUT # 4.4 K/uL (1.8-7.0); NEUT % 61.5 % (50.0-75.0); RBC 4.89 Mil/uL (4.40-5.90); RED CELL DISTRIBUTION WIDTH 13.5 % (11.5-14.5); WHITE BLOOD COUNT 7.2 K/uL (4.8-10.8)
[2018-07-18 20:54] LABS: INR 1.2; PROTHROMBIN TIME 12.6 SECONDS (9.7-12.2)
[2018-07-18 20:55] LABS: BARBITURATES, UR NEGATIVE (NEGATIVE); BENZODIAZEPINES, UR NEGATIVE (NEGATIVE); OPIATES, UR NEGATIVE (NEGATIVE); PHENCYCLIDINE, UR NEGATIVE (NEGATIVE)
[2018-07-18 21:00] LABS: ALB/GLOB RATIO 1.8 (1.0-2.1); ALBUMIN 4.8 g/dL (3.5-5.0); ALT/SGPT 21 U/L (21-72); AST/SGOT 24 U/L (17-59); BLOOD UREA NITROGEN 10 mg/dL (9-20); CALCIUM 9.7 mg/dl (8.6-10.4); GFR NON-AFRICAN AMERICAN > 60
[2018-07-18 22:29] VITALS: O2SAT 99
[2018-07-18 22:49] VITALS: BP 120/85; PULSE 92; RESP 16; TEMP 98.2
--- NOTE | 2018-07-19 08:26 | CT ---
Date of service: 07/18/2018 PROCEDURE: CT HEAD WITHOUT CONTRAST. HISTORY: R/O Bleed COMPARISON: None available. TECHNIQUE: Axial computed tomography images were obtained through the head/brain without intravenous contrast. Radiation dose: Total exam DLP = 795 mGy-cm. This CT exam was performed using one or more of the following dose reduction techniques: Automated exposure control, adjustment of the mA and/or kV according to patient size, and/or use of iterative reconstruction technique. FINDINGS: HEMORRHAGE: No intracranial hemorrhage. BRAIN: No mass effect or edema. No atrophy or chronic microvascular ischemic changes. VENTRICLES: Unremarkable. No hydrocephalus. CALVARIUM: Unremarkable. PARANASAL SINUSES: Opacification of the left maxillary sinus. MASTOID AIR CELLS: Unremarkable as visualized. No inflammatory changes. OTHER FINDINGS: None. IMPRESSION: No acute intracranial abnormality. Opacification of the left maxillary sinus. If symptoms persist, consider correlation with MRI. These findings were preliminarily reported at 10:25 p.m. on 07/18/[address] Reza Smith from [facility].
--- NOTE | 2018-07-20 14:32 | CARD ---
APPROVED REPORT Date of service: 07/18/2018 EKG Measurement Heart [id number] <Conclusion> Normal sinus rhythm with sinus arrhythmia Normal ECG
== END 2018-07-18 22:49 | disposition home or self-care (01) ==
LOC: C.ER 18:44
DX: T88.7XXA Unspecified adverse effect of drug or medicament, initial encounter (principal); T50.995A Adverse effect of other drugs, medicaments and biological substances, initial encounter
CPT/HCPCS: 70450; 80053; 81001; 83735; 84443; 85025; 85610; 85730; 93005; 99285; G0480